=== PATIENT | female | born 1975 | race American Indian/Alaskan Native ===

== ENCOUNTER 2018-11-23 12:06 | Emergency (ER) | payer SELFPAY ==
[2018-11-23 12:29] VITALS: BP 143/92
--- NOTE | 2018-11-23 12:32 | Event Note ---
ED Screening Note Date of service: 11/23/18 Time: 12:30 ED Screening Note: 42 y o female presents with right calf pain x 2 days tender to palpation hx of bakers cyst to same leg This initial assessment/diagnostic orders/clinical plan/treatment(s) is/are subject to change based on patients health status, clinical progression and re- assessment by fellow clinical providers in the ED. Further treatment and workup at subsequent clinical providers discretion. Patient/guardian urged not to elope from the ED as their condition may be serious if not clinically assessed and managed. Initial orders include: UD doppler
--- NOTE | 2018-11-23 13:32 | Vascular Lab Report ---
DUPLEX DOPPLER LOWER EXTREMITY VEINS, RIGHT INDICATION: Right calf pain. TECHNIQUE: Duplex doppler imaging was performed through the veins of the right lower extremity using venous comp ression and other maneuvers. COMPARISON: None available. FINDINGS: Common femoral vein: Negative. Superficial femoral vein: Negative. Popliteal vein: Negative. Calf veins: Negative. Additional findings: There is a benign-appearing lymph node in the right groin measuring 5.5 mm short axis. There is a normal triphasic arterial waveform in the right anterior tibial artery. IMPRESSION: No sonographic evidence for DVT in the right lower extremity. Signer Name: Jose Foster MD Signed: 11/23/2018 1:28 PM Workstation Name: [id number]
--- NOTE | 2018-11-23 14:02 | Emergency Department Report ---
ED Lower Extremity HPI - General Chief Complaint: Extremity Problem,Nontraumatic Stated Complaint: (R) LEG/KNEE PAIN/SWOLLEN Time Seen by Provider: 11/23/18 12:30 Source: patient Mode of arrival: Ambulatory Limitations: No Limitations - History of Present Illness Initial Comments: Pt reports R calf pain for the past month hx Nathan cyst no hx DVT states attributes it to muscles from working out but wanted to make sure MD Complaint: leg injury -: Gradual, month(s) (2) Injury: Leg: Right Type of Injury: unknown Place: home Severity: mild Severity scale (0 -10): 3 Improves With: nothing Worsens With: nothing Context: other Associated Symptoms: denies: swelling, numbness, tingling ED Review of Systems ROS: Stated complaint: (R) LEG/KNEE PAIN/SWOLLEN Other details as noted in HPI Comment: All other systems reviewed and negative ED Past Medical Hx - Past Medical History Previous Medical History?: No - Surgical History Past Surgical History?: No - Social History Smoking Status: Never Smoker Substance Use Type: Alcohol ED Physical Exam - General Limitations: No Limitations General appearance: alert, in no apparent distress - Head Head exam: Present: atraumatic, normocephalic - Eye Eye exam: Present: normal appearance - ENT ENT exam: Present: mucous membranes moist - Neck Neck exam: Present: normal inspection - Extremities Exam Extremities exam: Present: normal inspection, full ROM, normal capillary refill, calf tenderness (R). Absent: tenderness, pedal edema - Back Exam Back exam: Present: normal inspection - Neurological Exam Neurological exam: Present: alert, oriented X3 - Psychiatric Psychiatric exam: Present: normal affect, normal mood - Skin Skin exam: Present: warm, dry, intact, normal color. Absent: rash ED Course Vital Signs 11/23/18 12:25 Temperature 98.0 F Pulse Rate 80 Respiratory 18 Rate Blood Pressure 143/92 O2 Sat by Pulse 100 Oximetry ED Lower Extremity MDM - Radiology Data Radiology results: report reviewed no dvt - Medical Decision Making leg pain w normal exam US neg for DVT fu pcp - Differential Diagnosis muscle, dvt Critical care attestation.: If time is entered above; I have spent that time in minutes in the direct care of this critically ill patient, excluding procedure time. ED Disposition Clinical Impression: Leg pain Qualifiers: Laterality: right Qualified Code(s): M79.604 - Pain in right leg Disposition: DC-01 TO HOME OR SELFCARE Is pt being admited?: No Condition: Good Instructions: Arthralgia (ED) Referrals: ANNEL PATEL MD [Staff Physician] - 3-5 Days Time of Disposition: 14:04
== END 2018-11-23 15:43 | disposition home or self-care (01) ==
LOC: ED 12:06
DX: M79.604 Pain in right leg (principal)
CPT/HCPCS: 99283

== ENCOUNTER 2019-06-24 15:05 | Emergency (ER) | payer SELFPAY ==
--- NOTE | 2019-06-24 15:14 | Emergency Department Report ---
Stated Complaint: COUGHING UP BLOOD AND COLD Time Seen by Provider: 06/24/19 15:11 - HPI History of Present Illness: cough bloody sputum one day no fever no travel no sick contacts works at home viral bronchitis supportive care instructions MSE screening note: Focused history and physical exam performed. Due to findings the following was ordered: ED Disposition for MSE Clinical Impression: Encounter for medical screening examination Disposition: MED SCREENING EXAM-LEFT Is pt being admited?: No Does the pt Need Aspirin: No Condition: Stable
[2019-06-24 15:17] VITALS: BP 150/96
== END 2019-06-24 16:10 | disposition left against medical advice (07) ==
LOC: ED 15:05
DX: R05 Cough (principal); Z53.21 Procedure and treatment not carried out due to patient leaving prior to being seen by health care provider

== ENCOUNTER 2021-06-01 13:30 | Emergency (ER) | payer SELFPAY ==
[2021-06-01] MEDS ORDERED: IBUPROFEN 400 MG TAB PO ONE (14:47)
[2021-06-01] MEDS ORDERED: ACETAMINOPHEN 325 MG TAB PO ONE (14:47)
--- NOTE | 2021-06-01 14:47 | Emergency Department Report ---
ED Lower Extremity HPI - General Chief Complaint: Extremity Problem,Nontraumatic Stated Complaint: Knee swelling Time Seen by Provider: 06/01/21 14:12 Source: patient Mode of arrival: Ambulatory Limitations: No Limitations - History of Present Illness Initial Comments: The patient is a 45-year-old female who reports that she is not , who presents to the ER today with a complaint of minimally painful nontraumatic left-sided knee swelling. The symptoms have been present for about a week and a half. Denies fever, chills, trauma, illicit drug use, urinary symptoms. This last happened to her about a year and a half ago. Denies additional injuries and complaints. Patient has not taken anything [id number] for pain MD Complaint: other -: days(s) Injury: Knee: Left Type of Injury: unknown Improves With: rest Worsens With: movement, palpation Associated Symptoms: swelling - Related Data Previous Rx's Medication Instructions Recorded Last Taken Type Acetaminophen [Non-Aspirin Extra 500 mg PO Q6HR PRN #30 tablet 06/01/21 Unknown Rx Strength] Ibuprofen [Motrin] 600 mg PO Q8H PRN #30 tablet 06/01/21 Unknown Rx Allergies Allergy/AdvReac Type Severity Reaction Status Date / Time No Known Allergies Allergy Unverified 06/24/19 15:14 ED Review of Systems ROS: Stated complaint: KNEE PAIN Other details as noted in HPI Comment: All other systems reviewed and negative Musculoskeletal: other (Left knee swelling and minimal arthralgia) ED Past Medical Hx - Social History Smoking Status: Current Every Day Smoker Substance Use Type: None - Medications Home Medications: Home Medications Medication Instructions Recorded Confirmed Last Taken Type Acetaminophen [Non-Aspirin Extra 500 mg PO Q6HR PRN #30 tablet 06/01/21 Unknown Rx Strength] Ibuprofen [Motrin] 600 mg PO Q8H PRN #30 tablet 06/01/21 Unknown Rx ED Physical Exam - General Limitations: No Limitations General appearance: alert, in no apparent distress - Head Head exam: Present: atraumatic, normocephalic - Eye Eye exam: Present: normal appearance, EOMI. Absent: nystagmus - ENT ENT exam: Present: normal exam, normal orophraynx, mucous membranes moist, normal external ear exam - Neck Neck exam: Present: normal inspection, full ROM. Absent: tenderness, meningismus - Respiratory Respiratory exam: Present: normal lung sounds bilaterally. Absent: respiratory distress, wheezes, rales, rhonchi, stridor, decreased breath sounds - Cardiovascular Cardiovascular Exam: Present: regular rate, normal rhythm, normal heart sounds. Absent: bradycardia, tachycardia, irregular rhythm, systolic murmur, diastolic murmur, rubs, gallop - GI/Abdominal GI/Abdominal exam: Present: soft. Absent: distended, tenderness, guarding, rebound, rigid, pulsatile mass - Extremities Exam Extremities exam: Present: full ROM, normal capillary refill, other (2+ pulses noted in the bilateral upper and lower extremities. There is no palpable cord. negative Homans sign. Muscular compartments are soft. The pelvis is stable.). Absent: normal inspection (There is a left knee effusion.), tenderness, pedal edema, joint swelling, calf tenderness - Back Exam Back exam: Present: normal inspection, full ROM. Absent: tenderness, CVA te nderness (R), CVA tenderness (L), paraspinal tenderness, vertebral tenderness - Neurological Exam Neurological exam: Present: alert, oriented X3, normal gait, other (No facial droop. Tongue midline. Extraocular movements intact bilaterally. Facial sensation intact to light touch in V1, V2, V3 distribution bilaterally. 5 and a 5 strength in 4 extremities. Sensation intact to light touch in 4 extremities.). Absent: motor sensory deficit - Psychiatric Psychiatric exam: Present: normal affect, normal mood - Skin Skin exam: Present: warm, dry, intact, normal color. Absent: rash ED Course Vital Signs 06/01/21 14:03 Temperature 98.3 F Pulse Rate 77 Respiratory 16 Rate Blood Pressure 145/89 O2 Sat by Pulse 98 Oximetry ED Lower Extremity MDM - Lab Data Vital Signs 06/01/21 14:03 Temperature 98.3 F Pulse Rate 77 Respiratory 16 Rate Blood Pressure 145/89 O2 Sat by Pulse 98 Oximetry - Medical Decision Making Differential diagnosis, including but not limited to: Sprain, strain, left knee effusion Assessment and plan: 45-year-old female, who was afebrile, with reassuring vital signs, who denies IV drug use, STI history, urinary symptoms, fever and chills, who has no neurovascular deficits, presenting to the ER with a complaint of minimally painful left-sided knee effusion, without redness, pus or streaking, full range of motion to the left knee, unable to weight-bear. There is no significant knee tenderness. Rest, ice, compression, elevation, wrapped, physical activities as tolerated, Tylenol, Motrin, stop wearing flip-flops, start wearing supportive shoes, outpatient follow-up with primary care, orthopedist, or sports medicine. Patient does not appear to have an emergent medical condition present at this time. The patient states that she is not . Critical care attestation.: If time is entered above; I have spent that time in minutes in the direct care of this critically ill patient, excluding procedure time. ED Disposition Clinical Impression: Effusion, left knee Disposition: HOME / SELF CARE / HOMELESS Is pt being admited?: No Does the pt Need Aspirin: No Condition: Stable Instructions: Knee Effusion, [id number] Additional Instructions: Patient may alternate ice packs and heat packs as needed for physical pain. We do advise that the patient stop wearing flip-flops/slides, and start to wear footwear that has good arch support and is generally supportive, such as athletic shoes, or cross trainers, or shoes with appropriate arch support. Take the prescribed pain medication as needed and directed, patient may wear a soft knee brace as purchased [id number] as needed for physical pain relief. We recommend follow-up with an outpatient primary care doctor or orthopedist within the next 2 to 3 weeks. Physical activities as tolerated. Avoid heavy lifting. Please return to the emergency room right away with new pain, worsened pain, migration of pain, projectile vomiting, change in mental status, confusion, inability tolerate liquid feeds, new, worsened or different symptoms not present on the initial emergency room evaluation Prescriptions: Ibuprofen [Motrin] 600 mg PO Q8H PRN #30 tablet PRN Reason: Pain Acetaminophen [Non-Aspirin Extra Strength] 500 mg PO Q6HR PRN #30 tablet PRN Reason: Pain , Severe (7-10) Referrals: KARELY GAMA MD [Primary Care Provider] - 3-5 Days GRZEGORZ REMY MD [Staff Physician] - 3-5 Days ANNEL PATEL MD [Staff Physician] - 3-5 Days [facility] [Provider Group] - 3-5 Days [facility] [Provider Group] - 3-5 Days
[2021-06-01 15:41] VITALS: BP 145/89
== END 2021-06-01 17:09 | disposition home or self-care (01) ==
LOC: ED 13:30
DX: M25.462 Effusion, left knee (principal)
CPT/HCPCS: 99282